=== PATIENT | female | born 1995 | race Caucasian/White ===

== ENCOUNTER 2018-05-21 13:16 | Emergency (ER) | payer OTHER ==
[~2018-05-21] VITALS: Ht 157.5 cm; Wt 80.0 kg
[~2018-05-21 13:16] MED LIST: CEPH-357 PO; NO HOME MEDS; ONDA4TAB12 PO; PHEN-824 PO
[2018-05-21 13:33] VITALS: BP 112/74
[2018-05-21] MEDS ORDERED: ketorolac trometh inj. 60 MG/2 ML VIAL IM ONE (14:35)
== END 2018-05-21 15:36 | disposition home or self-care (01) ==
LOC: ER 13:17
DX: S06.0X0A Concussion without loss of consciousness, initial encounter (principal); M54.2 Cervicalgia; Z79.2 Long term (current) use of antibiotics; Z79.899 Other long term (current) drug therapy; V89.2XXA Person injured in unspecified motor-vehicle accident, traffic, initial encounter; Y93.89 Activity, other specified; Y92.488 Other paved roadways as the place of occurrence of the external cause; Y99.8 Other external cause status
CPT/HCPCS: 72040; 96372; 99283; J1885

== ENCOUNTER 2018-06-19 10:39 | Emergency (ER) | payer OTHER ==
[~2018-06-19] VITALS: Ht 157.5 cm; Wt 79.8 kg
[2018-06-19 10:46] VITALS: BP 111/70
== END 2018-06-19 12:00 | disposition home or self-care (01) ==
LOC: ER 10:40
DX: M25.572 Pain in left ankle and joints of left foot (principal); Z79.2 Long term (current) use of antibiotics; Z79.899 Other long term (current) drug therapy
CPT/HCPCS: 29515; 73610; 99284

== ENCOUNTER 2018-07-05 08:49 | Emergency (ER) | payer OTHER ==
[~2018-07-05] VITALS: Ht 170.2 cm; Wt 82.0 kg
[2018-07-05 08:50] VITALS: BP 117/80
[2018-07-05] MEDS ORDERED: PRED20TA PO (09:00)
[2018-07-05] MEDS ORDERED: AZIT-72 PO (09:00)
== END 2018-07-05 09:13 | disposition home or self-care (01) ==
LOC: ER 08:49
DX: J32.2 Chronic ethmoidal sinusitis (principal); Z79.2 Long term (current) use of antibiotics; Z79.899 Other long term (current) drug therapy
CPT/HCPCS: 99283

== ENCOUNTER 2018-08-09 17:25 | Emergency (ER) | payer OTHER ==
[~2018-08-09] VITALS: Ht 170.2 cm; Wt 82.5 kg
[2018-08-09] MEDS ORDERED: CEPH250T PO (21:47)
[2018-08-09] MEDS ORDERED: diphenhydrAMINE 25mg capsule PO ONE (21:50)
[2018-08-09 22:02] VITALS: BP 110/62
== END 2018-08-09 22:03 | disposition home or self-care (01) ==
LOC: ER 17:26
DX: R06.00 Dyspnea, unspecified (principal)
CPT/HCPCS: 71045; 93005; 99283; Q0163

== ENCOUNTER 2018-11-03 00:08 | Emergency (ER) | payer OTHER ==
[~2018-11-03] VITALS: Ht 162.6 cm; Wt 86.3 kg
--- NOTE | 2018-11-03 00:44 | NUR ---
PT HAS PRODUCTIVE COUGH AND RUNNY NOSE FOR LAST 3 DAYS. PT STATED SHE ALSO HAD SEVERE STOMACH PAIN AND ALMOST FAINTED 4X YESTERDAY.
[2018-11-03 00:49] VITALS: BP 120/69
== END 2018-11-03 01:12 | disposition home or self-care (01) ==
LOC: ER 00:09
DX: J40 Bronchitis, not specified as acute or chronic (principal); Z87.440 Personal history of urinary (tract) infections
CPT/HCPCS: 71045; 99283

== ENCOUNTER 2018-12-11 12:06 | Emergency (ER) | payer OTHER ==
[~2018-12-11] VITALS: Ht 165.1 cm; Wt 89.0 kg
[2018-12-11 13:08] LABS: CLARITY,URINE SLIGHTLY CLOUDY (Clear); COLOR,URINE YELLOW (Yellow); GLUCOSE, URINE NEGATIVE (Neg); KETONES,URINE NEGATIVE (Neg); LEUKOCYTE ESTERASE ,URINE LARGE (Neg); NITRITES, URINE NEGATIVE (Neg); OCCULT BLOOD,URINE LARGE (Neg); PROTEIN,URINE 30 mg/dl (Neg); UROBILINOGEN,URINE 0.2 E.U/dL (0.2-1.0)
[2018-12-11 13:12] LABS: UA COLLECTION TYPE CLN CATCH MIDSTREAM
[2018-12-11 14:15] LABS: SQUAMOUS EPITHELIAL CELL,UR MANY /LPF (FEW); WBC,URINE 20-30 /HPF (0-4)
[2018-12-11 14:17] LABS: BACTERIA,URINE 1+ /HPF (Neg)
[2018-12-11] MEDS ORDERED: PHEN-716 PO (14:36)
[2018-12-11] MEDS ORDERED: NITR100C6 PO (14:36)
[2018-12-11 14:44] LABS: URINE HCG NEGATIVE (NEG)
[2018-12-11 15:01] VITALS: BP 123/75
== END 2018-12-11 14:55 | disposition home or self-care (01) ==
LOC: ER 12:07
DX: N39.0 Urinary tract infection, site not specified (principal)
CPT/HCPCS: 81001; 81025; 99283

== ENCOUNTER 2019-08-28 07:52 | Emergency (ER) | payer OTHER ==
[~2019-08-28] VITALS: Ht 162.6 cm; Wt 97.7 kg
[~2019-08-28 07:52] MED LIST changes: +NITR100C6 PO; +PHEN-716 PO
[2019-08-28 07:57] VITALS: BP 110/66
== END 2019-08-28 08:51 | disposition home or self-care (01) ==
LOC: ER 07:52
DX: J06.9 Acute upper respiratory infection, unspecified (principal); R05 Cough
CPT/HCPCS: 99281

== ENCOUNTER 2019-10-17 12:09 | Emergency (ER) | payer OTHER ==
[~2019-10-17] VITALS: Ht 162.6 cm; Wt 100.0 kg
[2019-10-17 12:13] VITALS: BP 117/76
== END 2019-10-17 13:00 | disposition home or self-care (01) ==
LOC: ER 12:10
DX: B34.9 Viral infection, unspecified (principal); Z20.828 Contact with and (suspected) exposure to other viral communicable diseases; R05 Cough; M79.10 Myalgia, unspecified site; Z79.2 Long term (current) use of antibiotics; Z79.899 Other long term (current) drug therapy
CPT/HCPCS: 36415; 87635; 99283

== ENCOUNTER 2019-10-20 15:55 | Emergency (ER) | payer OTHER ==
[~2019-10-20] VITALS: Ht 162.6 cm; Wt 90.5 kg
[2019-10-20 15:56] VITALS: BP 127/95
[2019-10-20] MEDS ORDERED: ALBU6.7H9 INH (16:04)
== END 2019-10-20 16:22 | disposition home or self-care (01) ==
LOC: ER 15:56
DX: R05 Cough (principal); Z20.828 Contact with and (suspected) exposure to other viral communicable diseases; R06.02 Shortness of breath; R50.9 Fever, unspecified
CPT/HCPCS: 36415; 87635; 99283

== ENCOUNTER 2019-11-19 15:03 | Emergency (ER) | payer OTHER ==
[~2019-11-19] VITALS: Ht 162.6 cm; Wt 90.9 kg
[~2019-11-19 15:03] MED LIST changes: +ALBU6.7H9 INH
--- NOTE | 2019-11-19 16:24 | NUR ---
CALLED [facility] RE: JARRED DX LAST MONTH AND INQUIRE IF PT NEEDS ISO. PER PT SHE HAS BEEN CLEARED TO GO BACK TO WORK. PER [facility] SHE STATES AFTER THE INITIAL QUARITNE IF PT IS ASYMPTOMATIC FOR 3-14 DAYS, PT NO LONGER NEEDS ISO. PT DENIES S/S OF COVSHRUTHI
[2019-11-19] MEDS ORDERED: IBUP-1984 PO (16:57)
[2019-11-19 17:28] VITALS: BP 96/64
== END 2019-11-19 17:30 | disposition home or self-care (01) ==
LOC: ER 15:03
DX: S46.212A Strain of muscle, fascia and tendon of other parts of biceps, left arm, initial encounter (principal); X50.0XXA Overexertion from strenuous movement or load, initial encounter; Y93.89 Activity, other specified; Y92.89 Other specified places as the place of occurrence of the external cause; Y99.9 Unspecified external cause status
CPT/HCPCS: 99282

== ENCOUNTER 2019-11-26 07:50 | Emergency (ER) | payer OTHER ==
[~2019-11-26] VITALS: Ht 162.6 cm; Wt 87.7 kg
[2019-11-26] MEDS ORDERED: normal saline 1000ML IV soln IV ONE (08:20)
[2019-11-26 09:59] LABS: BASOPHILS % (AUTO) 0.4 % (0-1); EOSINOPHILS % (AUTO) 8.7 % (0-6); HEMATOCRIT 41.5 % (35.0-45.0); HEMOGLOBIN 14.1 g/dl (12.0-16.0); LYMPHOCYTES # (AUTO) 1.6 X10'3 (1.1-4.8); LYMPHOCYTES % (AUTO) 14.2 % (21-51); MEAN CORPUSCULAR HEMOGLOBIN 29.9 PG (27.0-31.0); MEAN CORPUSCULAR VOLUME 87.7 FL (78-98); MEAN PLATELET VOLUME 8.1 FL (7.4-10.4); MONOCYTES # (AUTO) 0.7 X10'3 (0-0.9); MONOCYTES % (AUTO) 5.9 % (2-12); NEUTROPHILS # (AUTO) 7.9 X10'3 (1.8-7.7); NEUTROPHILS % (AUTO) 70.8 % (42-75); PLATELET COUNT 268 X10'3 (140-440); RED BLOOD COUNT 4.73 X10'6 (4.20-5.60); RED CELL DISTRIBUTION WIDTH 13.9 % (11.5-14.5); WHITE BLOOD COUNT 11.1 X10'3 (4.5-11.0)
--- NOTE | 2019-11-26 10:06 | NUR ---
[facility] provided.call light within reach.
[2019-11-26 10:07] LABS: PARTIAL THROMBOPLASTIN TIME 27 SECONDS (22-32)
[2019-11-26 10:08] LABS: ALANINE AMINOTRANSFERASE 27 U/L (12-78); ALBUMIN 3.8 G/DL (3.4-5.0); ALKALINE PHOSPHATASE 22 IU/L (46-116); ANION GAP 9 (8-16); ASPARTATE AMINO TRANSFERASE 17 U/L (10-37); BILIRUBIN,TOTAL 0.2 MG/DL (0.1-1.0); BLOOD UREA NITROGEN 10 MG/DL (7-18); BUN/CREATININE RATIO 12.3 (6.6-38.0); CHLORIDE 105 MMOL/L (99-107); CREATININE 0.81 MG/DL (0.40-0.90); GLUCOSE 103 MG/DL (70-104); MAGNESIUM 1.9 MG/DL (1.5-2.4); POTASSIUM 3.7 MMOL/L (3.5-5.1); SODIUM 139 MMOL/L (135-145); TOTAL CARBON DIOXIDE 25.1 MMOL/L (24-32); TOTAL PROTEIN 7.5 G/DL (6.4-8.2); eGFR 87 ML/MIN
[2019-11-26 10:12] VITALS: BP 111/77
== END 2019-11-26 10:59 | disposition home or self-care (01) ==
LOC: ER 07:50
DX: R06.02 Shortness of breath (principal); M94.0 Chondrocostal junction syndrome [Tietze]; Z72.89 Other problems related to lifestyle; Z79.899 Other long term (current) drug therapy
CPT/HCPCS: 36415; 71045; 80053; 83605; 83735; 84145; 85025; 85379; 85610; 85730; 87040; 93005; 99285; J7030

== ENCOUNTER 2020-02-09 23:16 | Emergency (ER) | payer OTHER ==
[~2020-02-09] VITALS: Ht 160 cm; Wt 86.4 kg
[2020-02-09 23:37] LABS: CLARITY,URINE SLIGHTLY CLOUDY (Clear); COLOR,URINE YELLOW (Yellow); GLUCOSE, URINE NEGATIVE (Neg); KETONES,URINE TRACE mg/dl (Neg); LEUKOCYTE ESTERASE ,URINE SMALL (Neg); NITRITES, URINE NEGATIVE (Neg); OCCULT BLOOD,URINE NEGATIVE (Neg); PH,URINE 7.5 (4.8-8.0); PROTEIN,URINE NEGATIVE (Neg); URINE HCG NEGATIVE (NEG)
[2020-02-09 23:41] LABS: UA COLLECTION TYPE CLN CATCH MIDSTREAM
[2020-02-09 23:42] LABS: BACTERIA,URINE 1+ /HPF (Neg); RBC,URINE NONE SEEN /HPF (0-2); SQUAMOUS EPITHELIAL CELL,UR MODERATE /LPF (FEW); WBC,URINE 0-4 /HPF (0-4)
[2020-02-09 23:43] LABS: AMORPHOUS URATES 3+
[2020-02-09] MEDS ORDERED: ketorolac trometh. 30mg/ml inj. IM ONE (23:50)
[2020-02-09 23:58] LABS: BASOPHILS # (AUTO) 0.1 X10'3 (0-0.2); EOSINOPHILS # (AUTO) 0.5 X10'3 (0-0.9); EOSINOPHILS % (AUTO) 7.8 % (0-6); HEMATOCRIT 40.1 % (35.0-45.0); HEMOGLOBIN 13.8 g/dl (12.0-16.0); LYMPHOCYTES # (AUTO) 2.6 X10'3 (1.1-4.8); LYMPHOCYTES % (AUTO) 36.2 % (21-51); MEAN CORPUSCULAR HEMOGLOBIN 30.6 PG (27.0-31.0); MEAN CORPUSCULAR HGB CONC 34.4 g/dL (33.0-36.5); MEAN CORPUSCULAR VOLUME 88.9 FL (78-98); MEAN PLATELET VOLUME 8.3 FL (7.4-10.4); MONOCYTES # (AUTO) 0.5 X10'3 (0-0.9); MONOCYTES % (AUTO) 7.6 % (2-12); NEUTROPHILS # (AUTO) 3.4 X10'3 (1.8-7.7); NEUTROPHILS % (AUTO) 47.4 % (42-75); PLATELET COUNT 269 X10'3 (140-440); RED BLOOD COUNT 4.51 X10'6 (4.20-5.60); RED CELL DISTRIBUTION WIDTH 13.5 % (11.5-14.5); WHITE BLOOD COUNT 7.1 X10'3 (4.5-11.0)
[2020-02-10] MEDS ORDERED: NITR100C6 PO (00:10)
[2020-02-10 00:57] LABS: ALANINE AMINOTRANSFERASE 33 U/L (12-78); ALBUMIN 3.7 G/DL (3.4-5.0); ALKALINE PHOSPHATASE 20 IU/L (46-116); ANION GAP 11 (8-16); ASPARTATE AMINO TRANSFERASE 21 U/L (10-37); BILIRUBIN,TOTAL 0.2 MG/DL (0.1-1.0); BLOOD UREA NITROGEN 13 MG/DL (7-18); BUN/CREATININE RATIO 12.9 (6.6-38.0); CALCIUM 9.1 MG/DL (8.5-10.1); CHLORIDE 105 MMOL/L (99-107); CREATININE 1.01 MG/DL (0.40-0.90); GLUCOSE 108 MG/DL (70-104); LIPASE 135 U/L (73-393); POTASSIUM 3.4 MMOL/L (3.5-5.1); SODIUM 140 MMOL/L (135-145); TOTAL CARBON DIOXIDE 24.4 MMOL/L (24-32); TOTAL PROTEIN 7.5 G/DL (6.4-8.2); eGFR 67 ML/MIN
--- NOTE | 2020-02-10 00:57 | NUR ---
Vamsi simms in [facility] - 02/10/20 at 0057 by LALY He is asleep. Lights dimmed. RR 15
[2020-02-10] MEDS ORDERED: POTA20TA19 PO (01:00)
[2020-02-10 01:09] VITALS: BP 101/67
== END 2020-02-10 01:10 | disposition home or self-care (01) ==
LOC: ER 23:17
DX: N39.0 Urinary tract infection, site not specified (principal); E87.6 Hypokalemia; R10.2 Pelvic and perineal pain; Z72.89 Other problems related to lifestyle; Z79.899 Other long term (current) drug therapy
CPT/HCPCS: 36415; 80053; 81001; 81025; 83690; 85025; 87088; 96372; 99283; J1885

== ENCOUNTER 2020-05-31 07:09 | Emergency (ER) | payer OTHER ==
[~2020-05-31] VITALS: Ht 162.6 cm; Wt 88.9 kg
[~2020-05-31 07:09] MED LIST changes: +POTA20TA19 PO
[2020-05-31 07:14] VITALS: BP 111/78
[2020-05-31] MEDS ORDERED: NAPR-56 PO (08:08)
== END 2020-05-31 08:19 | disposition home or self-care (01) ==
LOC: ER 07:10
DX: S93.491A Sprain of other ligament of right ankle, initial encounter (principal); Z79.899 Other long term (current) drug therapy; X50.1XXA Overexertion from prolonged static or awkward postures, initial encounter; Y93.89 Activity, other specified; Y92.89 Other specified places as the place of occurrence of the external cause; Y99.9 Unspecified external cause status
CPT/HCPCS: 29515; 73610; 99284

== ENCOUNTER 2021-10-30 11:24 | Emergency (ER) | payer BC, OTHER ==
[~2021-10-30] VITALS: Ht 162.6 cm; Wt 90.9 kg
[~2021-10-30 11:24] MED LIST changes: +POTA-208 PO; -POTA20TA19 PO
[2021-10-30 11:55] LABS: BASOPHILS # (AUTO) 0.1 X10'3 (0-0.2); BASOPHILS % (AUTO) 0.8 % (0-1); EOSINOPHILS # (AUTO) 0.2 X10'3 (0-0.9); EOSINOPHILS % (AUTO) 3.2 % (0-6); HEMATOCRIT 41.4 % (35.0-45.0); HEMOGLOBIN 14.3 g/dl (12.0-16.0); LYMPHOCYTES # (AUTO) 2.1 X10'3 (1.1-4.8); LYMPHOCYTES % (AUTO) 33.8 % (21-51); MEAN CORPUSCULAR HEMOGLOBIN 30.2 PG (27.0-31.0); MEAN CORPUSCULAR HGB CONC 34.6 g/dL (33.0-36.5); MEAN CORPUSCULAR VOLUME 87.3 FL (78-98); MEAN PLATELET VOLUME 7.2 FL (7.4-10.4); MONOCYTES # (AUTO) 0.4 X10'3 (0-0.9); MONOCYTES % (AUTO) 6.7 % (2-12); NEUTROPHILS # (AUTO) 3.5 X10'3 (1.8-7.7); NEUTROPHILS % (AUTO) 55.5 % (42-75); PLATELET COUNT 304 X10'3 (140-440); RED BLOOD COUNT 4.75 X10'6 (4.20-5.60); RED CELL DISTRIBUTION WIDTH 13.8 % (11.5-14.5); WHITE BLOOD COUNT 6.3 X10'3 (4.5-11.0)
[2021-10-30 11:57] LABS: URINE HCG NEGATIVE (NEG)
[2021-10-30 11:58] LABS: CLARITY,URINE SLIGHTLY CLOUDY (Clear); COLOR,URINE YELLOW (Yellow); GLUCOSE, URINE NEGATIVE (Neg); KETONES,URINE NEGATIVE (Neg); LEUKOCYTE ESTERASE ,URINE NEGATIVE (Neg); NITRITES, URINE NEGATIVE (Neg); OCCULT BLOOD,URINE MODERATE (Neg); PROTEIN,URINE NEGATIVE (Neg); UROBILINOGEN,URINE 0.2 E.U/dL (0.2-1.0)
[2021-10-30 12:03] LABS: UA COLLECTION TYPE CLN CATCH MIDSTREAM
[2021-10-30 12:04] LABS: SQUAMOUS EPITHELIAL CELL,UR MANY /LPF (FEW)
[2021-10-30 12:05] LABS: BACTERIA,URINE FEW /HPF (Neg)
[2021-10-30 12:06] LABS: RBC,URINE 0-2 /HPF (0-2); WBC,URINE 0-4 /HPF (0-4)
[2021-10-30 12:10] LABS: ALANINE AMINOTRANSFERASE 27 U/L (12-78); ALBUMIN 3.8 G/DL (3.4-5.0); ALBUMIN/GLOBULIN RATIO 0.9 (1.1-1.5); ALKALINE PHOSPHATASE 18 IU/L (46-116); ANION GAP 9 (8-16); ASPARTATE AMINO TRANSFERASE 18 U/L (10-37); BILIRUBIN,TOTAL 0.3 MG/DL (0.1-1.0); BLOOD UREA NITROGEN 14 MG/DL (7-18); BUN/CREATININE RATIO 19.4 (6.6-38.0); CALCIUM 9.4 MG/DL (8.5-10.1); CHLORIDE 103 MMOL/L (99-107); CREATININE 0.72 MG/DL (0.40-0.90); GLUCOSE 101 MG/DL (70-104); LIPASE 60 U/L (73-393); POTASSIUM 3.7 MMOL/L (3.5-5.1); SODIUM 139 MMOL/L (135-145); TOTAL CARBON DIOXIDE 27.2 MMOL/L (24-32); TOTAL PROTEIN 7.9 G/DL (6.4-8.2); eGFR > 90 ML/MIN
[2021-10-30] MEDS ORDERED: TRAM50TA2 PO (12:53)
[2021-10-30 13:11] VITALS: BP 117/69
== END 2021-10-30 13:14 | disposition home or self-care (01) ==
LOC: ER 11:24
DX: N83.292 Other ovarian cyst, left side (principal); Z85.43 Personal history of malignant neoplasm of ovary
CPT/HCPCS: 36415; 80053; 81001; 81025; 83690; 85025; 99283